=== PATIENT | female | born 1985 | race Caucasian/White ===

== ENCOUNTER 2024-12-25 18:53 | Emergency (ER) | payer BC, SELFPAY ==
[2024-12-25 18:57] VITALS: BP 122/78
[2024-12-25 22:09] VITALS: BMI 27.0
[2024-12-25 22:11] VITALS: BP 114/72
[2024-12-25 22:17] VITALS: BP 109/68
[2024-12-25 23:00] VITALS: BP 100/66
[2024-12-25 23:17] LABS: % Basophils 0.3 % (0-2); % Immature Granulocytes 0.3 % (0-0.5); % Lymphocytes 17.9 % (20.5-51.1); % Monocytes 13.4 % (1.7-9.3); % Neutrophils 67.1 % (42.2-75.2); Absolute Eosinophils 0.1 10^3/uL (0-0.7); Absolute Lymphocytes 1.1 10^3/uL (1.2-3.4); Absolute Monocytes 0.8 10^3/uL (0.1-0.6); Hematocrit 32.2 % (37.0-47.0); Hemoglobin 11.5 g/dL (12.0-16.0); Mean Corp Hgb Conc. 35.7 g/dL (33.0-37.0); Mean Corpuscular Hgb 29.4 pg (27.0-31.0); Mean Corpuscular Volume 82.4 fL (81.0-99.0); Mean Platelet Volume 9.6 fL (7.4-10.4); Nucleated Red Blood Cells % 0 %; Platelet Count 279 10^3/uL (130-400); Red Blood Cell Count 3.91 10^6/uL (4.20-5.40); Red Cell Dist. Width 13.7 % (11.5-14.5)
--- NOTE | 2024-12-25 23:18 | ED.GENMED ---
History of Present Illness
<Jacinto Dawson MD - Last Filed: 12/26/24 01:08>
General
Chief Complaint: Headache
Source: patient and spouse
Exam Limitations: none
Time Seen by Provider: 12/25/24 22:18
History of Present Illness
History of Present Illness:
39-year-old female started 3 days ago with some low back pain some vague intermittent abdominal discomfort and right-sided headache. Headache started later that day. Mostly worried about her baby but the headache is also unusual. She has a
history of migraines but this feels different. No fever no photophobia no neurologic symptoms no neck pain. No trauma. No vaginal bleeding. She does not feel like this is labor.
Past History
<Jacinto Dawson MD - Last Filed: 12/26/24 01:08>
Past History
ED Past Medical History: None
Review of Systems
<Jacinto Dawson MD - Last Filed: 12/26/24 01:08>
Review of Systems
All Other Systems: Not applicable
Constitutional: Denies fever
Respiratory: Reports no symptoms
: Reports no symptoms
Phy Exam
<Jacinto Dawson MD - Last Filed: 12/26/24 01:08>
Physical Exam
Physical Exam:
GENERAL: Alert and oriented in no apparent distress. But does appear uncomfortable
EYE: Orbits normal. No photophobia
NECK: Supple, no carotid bruits
ENT: Pharynx without erythema
CARDIAC: Regular rate and rhythm without any obvious murmurs.
LUNGS: Clear breath sounds,normal
ABDOMEN: Soft, without focal tenderness or distention. Suprapubic fullness consistent with 20-week
NEUROLOGICAL: Alert and oriented , grossly non-focal
SKIN: Warm and dry, no rash or lesion, no discoloration, skin intact.
MUSCULOSKELETAL: No edema,no deformity.Good color
PSYCH: Normal and appropriate interaction.
Course
<Jacinto Dawson MD - Last Filed: 12/26/24 01:08>
Orders/Labs/Results
Orders:
Orders
12/25/24 22:55
IV Insert/Care/Rem.- Treatment PRN
0.9% Sodium Chloride 500 ml [Nss] 500 ml IV BOLUS
Acetaminophen 1000MG/100Ml [Ofirmev] 1,000 mg in 100 ml IV ONCE
Acetaminophen IV Indication:: ED Narcotic Naive Pt-ONCE
12/25/24 22:56
US Abdomen Complete/Upper Urgent
Comment:
Reason For Exam: Abdominal back pain/
12/25/24 23:01
US 2nd/3rd Trimester Urgent
Comment:
Reason For Exam: 20 weeks . evaluate fetus
12/25/24 23:09
Complete Blood Count/With Diff Urgent
Comprehensive Metabolic Panel Urgent
Lipase Urgent
12/25/24 23:10
Urinalysis Reflex To Culture Urgent
Date Specimen was Collected: 12/25/24
Time Specimen was Collected: 23:09
Abnormal Lab Results
12/25/24
23:09
RBC 3.91 L 10^6/uL
(4.20-5.40)
Hgb 11.5 L g/dL
(12.0-16.0)
Hct 32.2 L %
(37.0-47.0)
Absolute Lymphs (auto) 1.1 L 10^3/uL
(1.2-3.4)
Absolute Monos (auto) 0.8 H 10^3/uL
(0.1-0.6)
Lymphocytes % 17.9 L %
(20.5-51.1)
Monocytes % 13.4 H %
(1.7-9.3)
Sodium 133 L mmol/L
(135-145)
Chloride 109 H mmol/L
(98-107)
Carbon Dioxide 19 L mmol/L
(22-30)
BUN 5 L mg/dl
(7-17)
Creatinine 0.4 L mg/dL
(0.6-1.0)
12/25/24 23:09
12/25/24 23:09
Vital Signs
Initial and Last Documented VS:
Initial Vital Signs
Temp Pulse Resp BP Pulse Ox
99.7 F 118 16 122/78 99
12/25/24 18:57 12/25/24 18:57 12/25/24 18:57 12/25/24 18:57 12/25/24 18:57
Last Documented Vital Signs
Temp Pulse Resp BP Pulse Ox
99.7 F 99 16 101/64 99
12/25/24 18:57 12/26/24 02:00 12/26/24 02:00 12/26/24 03:00 12/26/24 02:00
<Garret Tucker, - Last Filed: 12/26/24 03:26>
Orders/Labs/Results
Orders:
Orders
12/25/24 22:55
IV Insert/Care/Rem.- Treatment PRN
0.9% Sodium Chloride 500 ml [Nss] 500 ml IV BOLUS
Acetaminophen 1000MG/100Ml [Ofirmev] 1,000 mg in 100 ml IV ONCE
Acetaminophen IV Indication:: ED Narcotic Naive Pt-ONCE
12/25/24 22:56
US Abdomen Complete/Upper Urgent
Comment:
Reason For Exam: Abdominal back pain/
12/25/24 23:01
US 2nd/3rd Trimester Urgent
Comment:
Reason For Exam: 20 weeks . evaluate fetus
12/25/24 23:09
Complete Blood Count/With Diff Urgent
Comprehensive Metabolic Panel Urgent
Lipase Urgent
12/25/24 23:10
Urinalysis Reflex To Culture Urgent
Date Specimen was Collected: 12/25/24
Time Specimen was Collected: 23:09
Abnormal Lab Results
12/25/24
23:09
RBC 3.91 L 10^6/uL
(4.20-5.40)
Hgb 11.5 L g/dL
(12.0-16.0)
Hct 32.2 L %
(37.0-47.0)
Absolute Lymphs (auto) 1.1 L 10^3/uL
(1.2-3.4)
Absolute Monos (auto) 0.8 H 10^3/uL
(0.1-0.6)
Lymphocytes % 17.9 L %
(20.5-51.1)
Monocytes % 13.4 H %
(1.7-9.3)
Sodium 133 L mmol/L
(135-145)
Chloride 109 H mmol/L
(98-107)
Carbon Dioxide 19 L mmol/L
(22-30)
BUN 5 L mg/dl
(7-17)
Creatinine 0.4 L mg/dL
(0.6-1.0)
12/25/24 23:09
12/25/24 23:09
Vital Signs
Initial and Last Documented VS:
Initial Vital Signs
Temp Pulse Resp BP Pulse Ox
99.7 F 118 16 122/78 99
12/25/24 18:57 12/25/24 18:57 12/25/24 18:57 12/25/24 18:57 12/25/24 18:57
Last Documented Vital Signs
Temp Pulse Resp BP Pulse Ox
99.7 F 99 16 101/64 99
12/25/24 18:57 12/26/24 02:00 12/26/24 02:00 12/26/24 03:00 12/26/24 02:00
<Jacinto Dawson MD - Last Filed: 12/26/24 01:08>
MDM/Problems Addressed
Differential Diagnosis Includes:
Patient does have 2 issues that I am not convinced are directly related. Complaining of right sided headaches for 3 days. History of migraines however this feels differently. Clinically nontoxic. Temperature rechecked at 98.5. Considerations
would include atypical migraine, tension headache. Viral syndrome. Although less likely would have to consider cavernous vein thrombosis or dissection. Recommended CT scan of the head and neck to start however patient is reluctant given the
. I explained radiation risk is minimal however she wants me to talk to her [facility] at [facility] first. As for her back pain and abdominal symptoms. She is not describing contractions. She does not feel these are
contractions. Doubt preeclampsia. Blood pressure is good. Will check urine for protein white count LFTs. Also check ultrasound and abdominal ultrasound. Pain management with Tylenol.
<Jacinto Dawson MD - Last Filed: 12/26/24 01:08>
*Pulse Oximetry
Patient hypoxic: no (98%)
Comment: 98%
<Garret Tucker DO - Last Filed: 12/26/24 03:26>
*Critical Care Note
Total Time (30-74mins, 75-104mins- exclusive of procedures): Not Applicable
<Jacinto Dawson MD - Last Filed: 12/26/24 01:08>
Update Note
Update Note:
Discussed with [facility] at [place]. They would prefer she be transferred down there for further observation. updated
ED Attending Note
<Jacinto Dawson MD - Last Filed: 12/26/24 01:08>
-
Portions of this chart may have been created with voice recognition software.� Occasional wrong word or��sound alike� substitutions may have occurred due to the inherent limitations of voice recognition software.
Discharge Plan
Departure
Patient Disposition: Acute Care Hospital
Date of Disposition: 12/26/24
Time of Disposition: :25
Discharge Problem:
Abdominal pain/back pain, Acute right-sided headache, 20-week
Referrals:
PRIVATE,PHYSICIAN [Family Provider, Internal Medicine]
Hospital Transfer
Other hospital: [facility]
I certify that the patient requires transfer: Yes
Discussed case with accepting physician: [facility]
Reason for transfer: higher level of care
Interventions
Interventions:
*Risk Screen - Suicide Last Done: 12/25/24 18:59
*General Assessment Last Done: 12/25/24 22:12
*Neglect/Abuse Screening Last Done: 12/25/24 18:59
*ED- Fall Risk Assessment Last Done: 12/25/24 22:12
*ED COVID-19 Vaccine History Last Done: 12/25/24 22:12
ED- Neurological Assessment Last Done: 12/25/24 22:12
Discharge Date and Time
Print Language: CZECH
[2024-12-25 23:19] LABS: Urine Albumin Negative (Neg - Trace); Urine Bilirubin Negative (Negative); Urine Character Clear (Clear); Urine Color Yellow; Urine Glucose Negative (Negative); Urine Ketone Negative (Negative); Urine Leukocyte Negative (Negative); Urine Nitrite Negative (Negative); Urine Occult Blood Negative (Negative); Urine Urobilinogen Negative (Neg - 1+)
[2024-12-25] MEDS: NSS 500 IV (23:19)
[2024-12-25] MEDS: OFIRMEV 100 IV (23:19)
[2024-12-25 23:41] LABS: ALT (SGPT) 26 U/L (0-35); AST (SGOT) 23 U/L (14-36); Albumin 3.7 g/dl (3.5-5.0); Alkaline Phosphatase 42 U/L (38-126); Blood Urea Nitrogen 5 mg/dl (7-17); Carbon Dioxide 19 mmol/L (22-30); Chloride 109 mmol/L (98-107); Estimated Creatinine Clearance 123 ml/min; Glucose 87 mg/dl (70-99); Lipase 73 U/L (23-300); Sodium 133 mmol/L (135-145); Total Bilirubin 0.2 mg/dl (0.2-1.3); Total Protein 6.5 g/dl (6.3-8.2); eGFR > 60.00
[2024-12-26 01:14] VITALS: BP 102/68
[2024-12-26 02:00] VITALS: BP 109/57
[2024-12-26 03:00] VITALS: BP 101/64
[2024-12-26 03:28] VITALS: BP 101/64
== END 2024-12-26 03:32 | disposition short-term general hospital (02) ==
LOC: EMR 18:53
PROVIDERS: EMERGENCY PHYSICIAN Emergency Medicine
DX: O99.891 Other specified diseases and conditions complicating pregnancy (principal); R10.9 Unspecified abdominal pain; M54.9 Dorsalgia, unspecified; R51.9 Headache, unspecified; Z3A.20 20 weeks gestation of pregnancy
CPT/HCPCS: 99284; 96374; 76700; 76805; 80053; 81003; 83690; 85025

== ENCOUNTER 2025-07-08 06:54 | Outpatient (RCR) | payer BC, SELFPAY | END 2025-07-22 23:59 | disposition home or self-care (01) | LOC: RPT 06:54 | PROVIDERS: ATTENDING PHYSICIAN Family Medicine | DX: M54.50 Low back pain, unspecified (principal); Z73.6 Limitation of activities due to disability; M79.605 Pain in left leg | CPT/HCPCS: 97110; 97140; 97162 ==